=== PATIENT | female | born 1980 | race Caucasian/White ===

== ENCOUNTER 2022-04-21 22:54 | Emergency (ER) | payer OTHER ==
[~2022-04-21] VITALS: Ht 168 cm; Wt 88.0 kg
[2022-04-21] MEDS ORDERED: hydrALAZINE (APESOLINE) 20 MG/ML VIAL IV STA (23:04)
--- NOTE | 2022-04-21 23:10 | ED General ---
General Chief Complaint: Psych/Social Disorder Stated Complaint: PANIC ATTACK Source of Information: Patient, EMS History of Present Illness Date Seen by Provider: Apr 21, 2022 Time Seen by Provider: 22:54 Initial Comments 42-year-old female presenting with complaints of pressure to the left chest and high blood pressure. She has tingling into her left arm and hand. She has high blood pressure and takes labetalol 300 mg twice a day. She is taking this for over 7 years and thinks that it may not be working well for her. She is currently moving from [place] to [place]. She denies having any fever, chill s, nausea, vomiting, cough, headache, change in vision, abdominal pain. Her last menstrual period was 2 weeks ago. She has had prior panic attack and felt somewhat similar. Timing/Duration: 1/2 Hour Severity: Severe Modifying Factors: worse with Other (Stress) Associated Systoms: Chest Pain (Pressure in the left chest); No Cough, No Diaphoresis, No Fever/Chills, No Headaches, No Loss of Appetite, No Malaise, No Nausea/Vomiting, No Rash, No Seizure, No Shortness of Air, No Syncope, No Weakness Allergies and Home Medications Allergies Coded Allergies: No Known Drug Allergies (Unverified , 04/21/22) Patient Home Medication List Home Medication List Reviewed: Yes Hydrochlorothiazide (Hydrochlorothiazide) 25 Mg Tablet, 25 MG PO DAILY Prescribed by: LALI VAN on 04/22/22 0026 Review of Systems Review of Systems Constitutional: No chills, No dizziness, No fever EENTM: No ear discharge, No ear pain, No vision loss, No epistaxis, No nose congestion Respiratory: No cough, No short of breath Cardiovascular: see HPI Gastrointestinal: No nausea, No vomiting Genitourinary: No dysuria : No LMP: Apr 07, 2022 Musculoskeletal: see HPI Skin: No change in color Psychiatric/Neurological: Anxiety, Tingling (Left hand) Past [id number] Hx Patient Social History Tobacco Use?: No Use of E-Cig and/or Vaping dev: No Substance use?: No Alcohol Use?: No Past Medical History Surgery/Hospitalization HX: Hypertension, anxiety Physical Exam Vital Signs Vital Signs - First Documented 04/21/22 04/22/22 23:04 00:35 Temp 36.6 Pulse 78 Resp 18 B/P (MAP) 185/100 (128) Pulse Ox 99 Capillary Refill : Height, Weight, BMI Height: '" Weight: lbs. oz. kg; BMI Method: General Appearance: Anxious, Mild Distress HEENT: PERRL/EOMI, Pharynx Normal Neck: Full Range of Motion, Normal Inspection, Non Tender, Supple Respiratory: Chest Non Tender, Lungs Clear, Normal Breath Sounds, No Accessory Muscle Use, No Respiratory Distress Cardiovascular: Regular Rate, Rhythm, Normal Peripheral Pulses Gastrointestinal: Normal Bowel Sounds, No Pulsatile Mass, Non Tender, Soft Rectal: Deferred Extremity: Normal Capillary Refill, Normal Inspection, No Pedal Edema Neurologic/Psychiatric: Alert, Oriented x3, No Motor/Sensory Deficits, machine stamper II- XII Norm as Tested Skin: Normal Color, Warm/Dry Progress/Results/Core Measures Suspected Sepsis SIRS Temperature: Pulse: Respiratory Rate: Laboratory Tests 04/21/22 23:15: White Blood Count 17.7H Blood Pressure / Mean: Laboratory Tests 04/21/22 23:15: Creatinine 0.75, Platelet Count 372, Total Bilirubin 0.2 Results/Orders Lab Results Laboratory Tests Test 04/21/22 23:15 Range/Units White Blood Count 17.7 H 4.3-11.0 10^3/uL Red Blood Count 4.80 3.80-5.11 10^6/uL Hemoglobin 13.4 11.5-16.0 g/dL Hematocrit 39 35-52 % Mean Corpuscular Volume 82 80-99 fL Mean Corpuscular Hemoglobin 28 25-34 pg Mean Corpuscular Hemoglobin Concent 34 32-36 g/dL Red Cell Distribution Width 13.3 10.0-14.5 % Platelet Count 372 130-400 10^3/uL Mean Platelet Volume 10.2 9.0-12.2 fL Immature Granulocyte % (Auto) 0 % Neutrophils (%) (Auto) 57 42-75 % Lymphocytes (%) (Auto) 34 12-44 % Monocytes (%) (Auto) 6 0-12 % Eosinophils (%) (Auto) 3 0-10 % Basophils (%) (Auto) 0 0-10 % Neutrophils # (Auto) 10.0 H 1.8-7.8 10^3/uL Lymphocytes # (Auto) 5.9 H 1.0-4.0 10^3/uL Monocytes # (Auto) 1.0 0.0-1.0 10^3/uL Eosinophils # (Auto) 0.6 H 0.0-0.3 10^3/uL Basophils # (Auto) 0.1 0.0-0.1 10^3/uL Immature Granulocyte # (Auto) 0.1 0.0-0.1 10^3/uL Neutrophils % (Manual) 76 % Lymphocytes % (Manual) 16 % Monocytes % (Manual) 2 % Band Neutrophils 1 % Atypical Lymphocytes % Reactive Lymphocytes 5 % Platelet Estimate NORMAL Blood Morphology Comment NORMAL Sodium Level 138 135-145 MMOL/L Potassium Level 4.7 3.6-5.0 MMOL/L Chloride Level 106 98-107 MMOL/L Carbon Dioxide Level 20 L 21-32 MMOL/L Anion Gap 12 5-14 MMOL/L Blood Urea Nitrogen 22 H 7-18 MG/DL Creatinine 0.75 0.60-1.30 MG/DL Estimat Glomerular Filtration Rate 103 BUN/Creatinine Ratio 29 Glucose Level 113 H 70-105 MG/DL Calcium Level 9.2 8.5-10.1 MG/DL Corrected Calcium 9.2 8.5-10.1 MG/DL Magnesium Level 1.9 1.6-2.4 MG/DL Total Bilirubin 0.2 0.1-1.0 MG/DL Aspartate Amino Transf (AST/SGOT) 17 5-34 U/L Alanine Aminotransferase (ALT/SGPT) 18 0-55 U/L Alkaline Phosphatase 62 40-136 U/L Troponin I < 0.30 <0.30 NG/ML Pro-B-Type Natriuretic Peptide 36.8 <125.0 PG/ML Total Protein 6.8 6.4-8.2 GM/DL Albumin 4.0 3.2-4.5 GM/DL Lipase 35 8-78 U/L My Orders Orders - LALI VAN MD Cbc With Automated Diff (04/21/22 23:04) Magnesium (04/21/22 23:04) Chest 1 View Ap/Pa Only (04/21/22 23:04) Ekg Tracing (04/21/22 23:04) Comprehensive Metabolic Panel (04/21/22 23:04) Protime With Inr (04/21/22 23:04) Partial Thromboplastin Time (04/21/22 23:04) O2 (04/21/22 23:04) Monitor-Rhythm Ecg Trace Only (04/21/22 23:04) Ed Iv/Invasive Line Start (04/21/22 23:04) Lipase (04/21/22 23:04) Troponin I Fs (04/21/22 23:04) Probnp Fs (04/21/22 23:04) Hydralazine Injection (Apresoline Inject (04/21/22 23:04) Manual Differential (04/21/22 23:15) Vital Signs/I&O 04/21/22 04/22/22 23:04 00:35 Temp 36.6 Pulse 78 79 Resp 18 16 B/P (MAP) 185/100 (128) 132/80 Pulse Ox 99 Capillary Refill : Progress Note #1: Progress Note With her elevated blood pressure and taking 300 mg of labetalol twice a day Will obtain basic labs, electrocardiogram, cardiac enzymes, chest x-ray to look for acute abnormality in her electrolytes or cardiac enzymes that might contribute to her elevated blood pressure. This may all be related back to stress and anxiety. Administer hydralazine 10 mg IV x1 to help with blood pressure. Progress Note #2: Progress Note On recheck of the patient her blood pressure was significantly improved with the hydralazine. She was resting comfortably and had no further discomfort. She had stable chemistry panel without elevation of her cardiac enzymes. Her CBC showed elevated white blood cell count of 17.7 thousand. She did not have an infectious source of this may be more stress reaction. Counseled patient on spouse about having blood work to recheck her white count when she follows up with clinic. Stressed importance of following up and establishing with the clinic as soon as possible to help manage her blood pressure. In the meantime we will add on hydrochlorothiazide to her labetalol to see if that gives any additional control and improvement. ECG Initial ECG Impression Date: Apr 21, 2022 Initial ECG Impression Time: 23:28 Initial ECG Rate: 81 Initial ECG Rhythm: Normal Sinus Initial ECG Comparisson: No Previous ECG Available Comment Based on my personal interpretation and review her electrocardiogram showed normal sinus rhythm with a heart rate of 81 bpm. NH interval [address] elevation. QT interval 377 ms with a QTc interval 414 ms. She has no prior tracing available for comparison. Diagnostic Imaging Diagonstic Imaging: Xray Plain Films/CT/US/NM/MRI: chest Comments On my personal review and interpretation of her 1 view chest x-ray she has no acute infiltrate or effusion. There is no cardiomegaly. There is no prior imaging for comparison. Reviewed: Reviewed by Me Departure Impression Primary Impression: Elevated blood pressure reading with diagnosis of hypertension Additional Impressions: Elevated white blood cell count, unspecified Qualified Codes: D72.829 - Elevated white blood cell count, unspecified Stress reaction Disposition: HOME, SELF-CARE Condition: Stable Departure-Patient Inst. Decision time for Depature: 00:08 Referrals: NO,LOCAL PHYSICIAN (PCP) Primary Care Physician [facility] [place] Patient Instructions: High Blood Pressure ED, Controlling Your Blood Pressure Through Lifestyle, DASH Diet, Anxiety, Adult ED Add. Discharge Instructions: Follow up with clinic and see primary care provider as soon as possible for evaluation of your blood pressure and to help manage this. they may need to give you an additional blood pressure medicine or change what you are currently taking. Try to follow heart healthy diet to help lower your blood pressure as well. Have your blood work rechecked with clinic to see if your white blood cells are still elevated. They could be high tonight due to stress as no infection was found on exam or testing. All discharge instructions reviewed with patient and/or family. Voiced understanding. Scripts Hydrochlorothiazide (Hydrochlorothiazide) 25 Mg Tablet 25 MG PO DAILY for high blood pressure for 30 Days, #30 TAB 0 Refills Prov: LALI VAN MD 04/22/22 LALI VAN MD Apr 21, 2022 23:10
[2022-04-21 23:30] LABS: BASOPHILS # (AUTO) 0.1 10^3/uL (0.0-0.1); BASOPHILS % (AUTO) 0 % (0-10); EOSINOPHILS # (AUTO) 0.6 10^3/uL (0.0-0.3); EOSINOPHILS % (AUTO) 3 % (0-10); HEMATOCRIT 39 % (35-52); HEMOGLOBIN 13.4 g/dL (11.5-16.0); LYMPHOCYTES # (AUTO) 5.9 10^3/uL (1.0-4.0); LYMPHOCYTES % (AUTO) 34 % (12-44); MEAN CORPUSCULAR HEMOGLOBIN 28 pg (25-34); MEAN CORPUSCULAR HGB CONC 34 g/dL (32-36); MEAN CORPUSCULAR VOLUME 82 fL (80-99); MEAN PLATELET VOLUME 10.2 fL (9.0-12.2); MONOCYTES % (AUTO) 6 % (0-12); NEUTROPHILS % (AUTO) 57 % (42-75); PLATELET COUNT 372 10^3/uL (130-400); WHITE BLOOD COUNT 17.7 10^3/uL (4.3-11.0)
[2022-04-21 23:50] LABS: BAND NEUTROPHILS 1 %; LYMPHOCYTES % (MANUAL) 16 %; MONOCYTES % (MANUAL) 2 %; NEUTROPHILS % (MANUAL) 76 %; REACTIVE LYMPHOCYTES 5 %
[2022-04-21 23:51] LABS: PLATELET ESTIMATE NORMAL; RBC MORPH NORMAL
[2022-04-22] LABS: BILIRUBIN,TOTAL 0.2 MG/DL (0.1-1.0); CALCIUM 9.2 MG/DL (8.5-10.1); CREATININE SERUM 0.75 MG/DL (0.60-1.30); MAGNESIUM 1.9 MG/DL (1.6-2.4); POTASSIUM 4.7 MMOL/L (3.6-5.0)
[2022-04-22 00:01] LABS: TOTAL PROTEIN 6.8 GM/DL (6.4-8.2)
[2022-04-22] MEDS ORDERED: HYDR25TA4 PO (00:26)
[2022-04-22 00:35] VITALS: BP 132/80
--- NOTE | 2022-04-22 07:35 | Diagnostic Imaging Report ---
EXAMINATION: Chest 1 view HISTORY: Left-sided chest pain. Elevated blood pressure. COMPARISON: None available. FINDINGS: The lung volumes are normal. No focal consolidation is seen. No large pleural effusion or pneumothorax is seen. The cardiomediastinal silhouette is normal in size and contour. No acute osseous abnormality is seen. IMPRESSION: 1. No acute pleuroparenchymal process. Dictated by: Dictated on workstation # [id number]
== END 2022-04-22 00:35 | disposition home or self-care (01) ==
LOC: ER FS 22:59
DX: I10 Essential (primary) hypertension (principal); F43.9 Reaction to severe stress, unspecified; D72.829 Elevated white blood cell count, unspecified; Z28.310 Unvaccinated for COVID-19
CPT/HCPCS: 36415; 71045; 80053; 83690; 83735; 83880; 84484; 85007; 85027; 93005; 93041